=== PATIENT | female | born 1965 | race Caucasian/White ===

== ENCOUNTER 2016-10-08 09:17 | Emergency (ER) | payer MEDICAID ==
[~2016-10-08] VITALS: Ht 160 cm; Wt 61.2 kg
[2016-10-08] MEDS ORDERED: ALPRAZOLAM0.5 M3 PO (09:29)
[2016-10-08] MEDS ORDERED: FLUOXETINE HCL40 MG PO (09:30)
--- NOTE | 2016-10-08 09:34 | Emergency Room Report ---
History of Present Illness Time Seen by MD Medrano Presenting Problem in Triage Pt arrived:Walked Presenting Problem:PT STATES COUGH AND BODY ACHES. STATES BODY ACHES STARTED A FEW DAYS AGO BUT HAS HAD COUGH FOR A WHILE. STATES FEVER PAST COUPLE OF DAYS. STATES PRODUCTIVE COUGH WITH LIGHT GREEN SPUTUM. STATES CHILLS. DENIES VOMITING OR DIARRHEA. STATES TAKING IBUPROFEN ABOUT ONE HOUR PRIOR TO ARRIVAL. 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 Y Clinical Suspician of Infection? N Mental Status: 1 - Regular (Normal Baseline) Sepsis Risk:Low Sepsis Risk Have you (or family members/close friends) recently traveled outside the [place]? N If Yes, where/when: Have you had exposure to infectious disease within the past month? N TB? Other? Specify: Comment The patient complains of flulike symptoms for a few days. She has a cough producing yellow-green sputum. Her throat hurts when she coughs. She has had a fever up to 102 degrees. She has generalized myalgias. She is wheezing and having shortness of breath. She says that she has chronic obstructive pulmonary disease but is currently not on inhalers, nebulizers. She says that she does not think she has ever been on steroids for chronic obstructive pulmonary disease. She is a smoker. No known exposures. ALLERGIES Coded Allergies: No Known Allergies (10/08/16) Home Medications Reported Medications Alprazolam 0.5 MG PO QID #120 Fluoxetine Hcl 40 MG PO DAILY #30 History Medical History General CAD? No Angina: No PA: No Hypertension? No Hyperlipidemia? No CHF? No DVT? No PE? No COPD? Yes Asthma? No Anemia? No GERD? No Gastric ulcers? No GI Bleed? No Hernia? No Thyroid Problems? No Hypothyroidism? No CVA? Yes Seizures? No Diabetes? No Renal Insuffiency? No End Stage Renal Disease? No UTI? Yes Stones? Yes GB Disease: No Nephritic Syndrome? No Asplenia? No Hepatitis? No Sickle Cell Disease? No Arthritis? Yes Migraines? Yes Cataracts? No Glaucoma? No MRSA? No HIV? No TB? No Anxiety? Yes Depression? Yes Cancer? 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 Respiratory cough, shortness of breath, wheezing Gastrointestinal denies diarrhea, denies vomiting Physical Exam Vital Signs Vital Signs Date Time Temp Pulse Resp B/P Pulse O2 O2 Flow FiO2 Ox Delivery Rate 10/08 1135 72 20 112/68 91 10/08 1038 98.0 72 20 112/68 92 10/08 0923 97.9 66 20 113/61 94 General Appearance normal appearance, WD/WN Eye Exam - bilateral eye normal exam, bilateral eye PERRL, bilateral eye EOMI Ear, Nose, Throat tympanic membranes normal, erythema of the uvula Neck normal inspection, non-tender, supple, full range of motion Respiratory Status Yes: trachea midline, chest symmetrical, productive cough. No: respiratory distress. Lung Sounds bilateral: rhonchi, wheezing. Cardiovascular normal exam, regular rate/rhythm, no peripheral edema, no gallop, no JVD, no murmur, no rub, normal peripheral pulses Peripheral Pulses Pulses normal Yes Gastrointestinal normal bowel sounds, normal exam, non tender, soft, no organomegaly Back normal inspection, no CVA tenderness, no vertebral tenderness Extremities non-tender, normal range of motion, normal inspection Neurologic alert, normal exam, oriented x 3 Mental status normal mood/affect Skin intact, normal color, warm/dry Lymphatic no adenopathy Medical Decision Making LABS/Meds/Orders Pt receiving controlled substance in ED? No Results/Orders Laboratory Tests 10/08/16 1024: Lactic Acid 0.7 10/08/16 1024: Sodium 138, Potassium 3.8, Chloride 100, Carbon Dioxide 28, BUN 15, Creatinine 0.6, Estimated Creat Clear 107, Estimated GFR (MDRD) 105, Glucose 99, Calcium 9.4, Total Bilirubin 0.8, AST 11 L, ALT 14, Alkaline Phosphatase 111, Total Protein 8.0, Albumin 3.5, Globulin 4.5 H, Albumin/Globulin Ratio 0.8 L, WBC 11.9 H, RBC 5.50 H, Hgb 16.7 H, Hct 49.5 H, MCV 89.9, RDW 14.6, Plt Count 234, MPV 9.1, Gran % 81.9 H, Gran # 9.7 H, Lymphocytes % 13.0, Monocytes % 3.6 , Eosinophils % 1.0, Basophils % 0.4, Lymphocytes # 1.5, Monocytes # 0.4, Eosinophils # 0.1, Basophils # 0.1, PUBS MCHC 33.9, MCH 30.4 10/08/16 0930: Influenza Type A Ag NOT DETECTED, Influenza Type B Ag NOT DETECTED Current Medication Orders Sig/Dorcas Start time Last Medication Dose Route Stop Time Status Admin Albuterol/Ipratropium 3 ML ONCE ONE 10/08 1200 AC INH 10/08 1201 Methylprednisolone 0 .STK-MED ONE 10/08 1037 DC Sodium Succinate .ROUTE Albuterol/Ipratropium 0 .STK-MED ONE 10/08 0953 DC INH Albuterol/Ipratropium 3 ML ONCE ONE 10/08 0945 DC 10/08 INH 10/08 0946 1001 Methylprednisolone 125 MG ONCE ONE 10/08 0945 DC 10/08 Sodium Succinate IV 10/08 0946 1040 Sodium Chloride 10 ML PRN PRN 10/08 0945 AC IV 10/09 0941 Orders Procedure Date/time Status RT REQUEST DUONEB 10/08 1146 Active RT REQUEST DUONEB 10/08 09 Active CHEST(2 VIEWS-NOT PORTABLE) 10/08 09 Active IV SALINE LOCK 10/08 09 Active CULTURE, SPUTUM 10/08 941 Active CULTURE, BLOOD 10/08 09 Active LACTIC ACID 10/08 09 Complete CBC WITH AUTO DIFF 10/08 941 Complete CHEM 12 PROFILE 10/08 09 Complete INFLUENZA A&B ANTIGENS 10/08 0931 Complete XRAY/CT/US XRAY/CT/US XRAY chest Comment Chronic obstructive pulmonary disease, no infiltrates seen Progress - 11:45 AM: Recheck patient. Air movement better, still with rhonchi and wheezes. Second nebulizer treatment ordered. Discussed diagnosis, treatment, disposition. The patient does not want to be admitted, she wants to be discharged. I will discharge on an albuterol inhaler, antibiotics, steroids, and follow-up. Departure Departure Disposition DC Home or Self Care(routine) Clinical Impression Primary Impression: Acute bronchitis Qualifiers: Bronchitis organism: unspecified organism Qualified Code: J20.9 - Acute bronchitis, unspecified Secondary Impressions: Chronic obstructive pulmonary disease with (acute) exacerbation Condition STABLE Patient Instructions DI for Acute Bronchitis, DI for Chronic Obstructive Pulmonary Disease Additional Instructions Additional instructions for ACUTE BRONCHITIS: Use Tylenol or Ibuprofen of pain or fever. Rest and plenty of fluids. Return immediately if you have an uncontrollable fever greater than 102 degrees, severe headache or neck stiffness, difficulty breathing or shortness of breath, persistent vomiting, severe sore throat or inability to swallow. See your physician if not improving in 4-5 days. Prescriptions Current Visit Scripts Azithromycin (Zithromycin (Z-AFSHIN) 250MG Tab) 250 MG PO DAILY #6 TAB TAKE TWO (2) TABLETS ON DAY 1, THEN ONE (1) TABLET DAY #2 THRU #5 Benzonatate (Tessalon Perle) 100 MG PO TID #15 SGL Methylprednisolone (Medrol Dose Afshin) 4 MG PO UD #1 AFSHIN TAKE DIRECTED ON PACKAGING ALBUTEROL (Proventil Hfa Inhaler) 1-2 PUFF IH Q4-6H PRN #1 CAN Ref 1 ED Critical Care Critical Care No at [id number]
[2016-10-08 10:34] LABS: HEMOGLOBIN 16.7 g/dL (12.2-16.2); LYMPH # 1.5 K/mm3 (0.7-4.5)
[2016-10-08] MEDS ORDERED: ZITHROMAX Z PA250 MG PO (11:48)
[2016-10-08] MEDS ORDERED: TESSALON PERLE100 M1 PO (11:48)
[2016-10-08] MEDS ORDERED: MEDROL 4MG. DOSE4 MG PO (11:48)
[2016-10-08] MEDS ORDERED: PROVENTIL0.09 MG/A1 IH (11:48)
[2016-10-08 12:11] VITALS: BP 111/71
--- NOTE | 2016-10-08 14:38 | RADIOLOGY REPORT PS360 ---
CHEST(2 VIEWS-NOT PORTABLE) HISTORY: cough, fever, sob COMPARISON: None available FINDINGS: The cardiomediastinal silhouette and pulmonary vascularity are within normal limits. The lungs are clear without infiltrates, suspicious nodules, or pleural effusions. No acute bony abnormalities. IMPRESSION: Negative chest, no acute finding
== END 2016-10-08 12:12 | disposition home or self-care (01) ==
LOC: ER 09:17
PROVIDERS: Emergency Medicine
DX: J44.0 Chronic obstructive pulmonary disease with (acute) lower respiratory infection (principal); J20.8 Acute bronchitis due to other specified organisms; J44.1 Chronic obstructive pulmonary disease with (acute) exacerbation; Z72.0 Tobacco use

== ENCOUNTER → 2016-11-17 | Outpatient (CLI) | payer MEDICAID ==
[~2016-11-17] MED LIST: ALPRAZOLAM0.5 M3 PO; AUGMENTIN 875-1 EACH PO; FLUOXETINE HCL40 MG PO; MEDROL 4MG. DOSE4 MG PO; NORCO 325 MG-51 TAB PO; OMEPRAZOLE20 MG PO; PROVENTIL0.09 MG/A1 IH; TESSALON PERLE100 M1 PO; ZITHROMAX Z PA250 MG PO
--- NOTE | 2016-11-17 08:34 | CARDIOVASCULAR REPORT ---
"Cerebrovascular Exam Indications: 435.9 Unspecified transient cerebral ischemia. IMPRESSIONS 1. The right internal carotid artery reveals no evidence of plaque or stenosis. 2. The left internal carotid artery reveals no evidence of plaque or stenosis. 3. The bilateral vertebral arteries are patent with normal antegrade flow. History: Risk factors: Current tobacco use. Hyperlipidemia. Carotid duplex study. Complete study and Doppler flow study including spectral analysis, color and salmeron scale imaging. Height: Height: 160cm. Height: 63in. Weight: Weight: 59kg. Weight: 129.7lb. Body mass index: BMI: 23kg/m^2. Body surface area: BSA: 1.63m^2. Location: Vascular laboratory. Patient status: Outpatient. Tables: Arterial flow: + +--------+--------+ |Location |V sys |V ed | + +--------+--------+ |Right CCA - proximal|73.1cm/s|25.9cm/s| + +--------+--------+ |Right CCA - distal |54.2cm/s|18.9cm/s| + +--------+--------+ |Right ECA |97.4cm/s|--------| + +--------+--------+ |Right ICA - proximal|66cm/s |19.6cm/s| + +--------+--------+ |Right ICA - mid |58.1cm/s|22cm/s | + +--------+--------+ |Right ICA - distal |62.1cm/s|29.9cm/s| + +--------+--------+ |Right vertebral |51.9cm/s|--------| + +--------+--------+ |Left CCA - proximal |98.2cm/s|29.1cm/s| + +--------+--------+ |Left CCA - distal |83.3cm/s|31.4cm/s| + +--------+--------+ |Left ECA |77cm/s |--------| + +--------+--------+ |Left ICA - proximal |70.7cm/s|19.6cm/s| + +--------+--------+ |Left ICA - mid |61.3cm/s|25.1cm/s| + +--------+--------+ |Left ICA - distal |73.9cm/s|33cm/s | + +--------+--------+ |Left vertebral |63.6cm/s|--------| + +--------+--------+ Velocity ratios: + + + + + + | |Right, V sys|Right, V ed|Left, V sys|Left, V ed| + + + + + + |Max ICA/dist CCA|1.22 |1.58 |0.89 |1.05 | + + + + + + (Report amended ) Electronically signed by: Yifan Ibarra [id number]"
[2016-11-18 09:42] LABS: Folate (Folic Acid) 3.4 ng/mL (>3.0)
== END ==
LOC: RT 08:00 → LAB 08:03
PROVIDERS: Specialist
DX: R29.90 Unspecified symptoms and signs involving the nervous system (principal)

== ENCOUNTER → 2016-12-10 | Outpatient (CLI) | payer MEDICAID ==
[2016-12-10 21:05] LABS: AMPHETAMINES/METAMPHETAMINES NEGATIVE ng/mL (<1000)
[2016-12-19 14:40] LABS: Opiates Negative (Cutoff=100)
== END ==
LOC: LAB 16:43
PROVIDERS: Emergency Medicine; Nurse Practitioner Family
DX: Z79.899 Other long term (current) drug therapy (principal)

== ENCOUNTER 2017-01-02 16:14 | Observation (INO) | payer MEDICAID ==
[~2017-01-02] VITALS: Ht 160 cm; Wt 53.3 kg
[~2017-01-02 16:14] MED LIST changes: -AUGMENTIN 875-1 EACH PO; -NORCO 325 MG-51 TAB PO; -OMEPRAZOLE20 MG PO
[2017-01-02 16:19] VITALS: BP 129/80
--- NOTE | 2017-01-02 17:03 | Emergency Room Report ---
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 N Clinical Suspician of Infection? N Mental Status: 1 - Regular (Normal Baseline) Sepsis Risk:Low Sepsis Risk Have you (or family members/close friends) recently traveled outside the [place]? N If Yes, where/when: Have you had exposure to infectious disease within the past month? N TB? Other? Specify: Source patient, RN notes reviewed, family, old records Exam Limitations no limitations Comment pt with progressive abd pain over the last week with dec po intake and vomiting - Cardiac Chest Pain Chest pain indicative of cardiac No Timing/Duration this evening Severity moderate ALLERGIES Coded Allergies: No Known Allergies (10/08/16) Home Medications Active Scripts Benzonatate (Tessalon Perle) 100 MG PO TID #15 SGL Prov: 10/08/16 Methylprednisolone (Medrol Dose Afshin) 4 MG PO UD #1 AFSHIN Prov: 10/08/16 ALBUTEROL (Proventil Hfa Inhaler) 1-2 PUFF IH Q4-6H PRN #1 CAN Ref 1 Prov: 10/08/16 Reported Medications Alprazolam 0.5 MG PO QID #120 Fluoxetine Hcl 40 MG PO DAILY #30 History Medical History General CAD? No Angina: No ID: No Hypertension? No Hyperlipidemia? No CHF? No DVT? No PE? No COPD? Yes Asthma? No Anemia? No GERD? No Gastric ulcers? No GI Bleed? No Hernia? No Thyroid Problems? No Hypothyroidism? No CVA? Yes Seizures? No Diabetes? No Renal Insuffiency? No End Stage Renal Disease? No UTI? Yes Stones? Yes GB Disease: No Nephritic Syndrome? No Asplenia? No Hepatitis? No Sickle Cell Disease? No Arthritis? Yes Migraines? Yes Cataracts? No Glaucoma? No MRSA? No HIV? No TB? No Anxiety? Yes Depression? Yes Cancer? 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 Respiratory denies cough, denies shortness of breath, denies wheezing Cardiovascular denies chest pain, denies palpitations, denies syncope Gastrointestinal see HPI, abdominal pain, nausea, vomiting Genitourinary denies: dysuria, frequency, hesitancy, hematuria. Musculoskeletal denies back pain, denies joint pain, denies joint swelling, denies neck pain Skin denies rash Psychiatric/Neurological denies headache, denies seizure Physical Exam Vital Signs Vital Signs Date Time Temp Pulse Resp B/P Pulse O2 O2 Flow FiO2 Ox Delivery Rate 01/02 1710 20 01/02 1619 98.6 72 16 129/80 99 - WBC >12,000 or <4,000 or 10% bands? 2 or more SIRS Criteria Met? B/P:129/80 MAP:96 Creatinine >2.0? UA output<0.5ml/kg/hr for 2 hrs? Platelet count >100,000? Lactate >2.0mmol/1? INR >1.2 or PTT > than 60 sec? Evidence of Organ Dysfunction? Provider documented clinical suspician of infection? N Sepsis Criteria Count: 0 Sepsis Risk: Low Sepsis Risk General Appearance no apparent distress Eye Exam - bilateral eye PERRL, bilateral eye EOMI Comment no icterus Ear, Nose, Throat normal ENT inspection Neck supple Respiratory Status No: respiratory distress. Lung Sounds bilateral: lungs clear. 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 No Results/Orders Laboratory Tests 01/02/17 1725: Creatine Kinase 38, CK-MB (CK-2) Rel Index 1.3, CK and CKMB Interp < 0.5, Troponin I < 0.02 01/02/17 1725: Sodium 144, Potassium 2.9 *L, Chloride 101, Carbon Dioxide 30, BUN 20 H, Creatinine 0.7, Estimated Creat Clear 85, Estimated GFR (MDRD) 88, Glucose 106, Calcium 10.0, Total Bilirubin 1.6 H, AST 9 L, ALT 16, Alkaline Phosphatase 78, Total Protein 7.8, Albumin 4.0, Globulin 3.8 H, Albumin/Globulin Ratio 1.1, Amylase 40, Lipase 83, WBC 14.4 H, RBC 6.07 H, Hgb 18.4 *H, Hct 55.7 H, MCV 91.8, RDW 12.8, Plt Count 218, MPV 7.3 L, Gran % 83.3 H, Gran # 12.0 H, Lymphocytes % 11.6, Monocytes % 4.6, Eosinophils % 0.4, Basophils % 0.1, Lymphocytes # 1.7, Monocytes # 0.7, Eosinophils # 0.1, Basophils # 0.0, PUBS MCHC 33.0, MCH 30.3 Current Medication Orders Sig/Dorcas Start time Last Medication Dose Route Stop Time Status Admin Hydromorphone HCl 1 MG ONCE ONE 01/020 DC IV 01/02 183 Pantoprazole Sodium 40 MG ONCE ONE 01/02 183 DC IV 01/02 1831 Promethazine HCl 12.5 MG ONCE ONE 01/02 1830 DC IV 01/02 1831 Sodium Chloride 25 ML ONCE ONE 01/02 1830 DC IV 01/02 1844 Sodium Chloride 10 ML ONCE ONE 01/02 1830 DC IV 01/02 1831 Morphine Sulfate 4 MG ONCE ONE 01/02 1715 DC 01/02 IV 01/02 1716 1710 Ondansetron HCl 4 MG ONCE ONE 01/02 1715 DC 01/02 IV 01/02 1716 1709 Ondansetron HCl 0 .STK-MED ONE 01/02 170 DC .ROUTE Morphine Sulfate 0 .STK-MED ONE 01/02 1706 DC .ROUTE Ondansetron HCl 4 MG ONCE ONE 01/02 1630 DC 01/02 IV 01/02 1631 1637 Sodium Chloride 10 ML PRN PRN 01/02 1630 AC IV 01/03 1625 Sodium Chloride 1,000 ML .Q1H1M 01/02 1630 DC 01/02 IV 01/02 1730 1639 Sodium Chloride 10 ML PRN PRN 01/02 1630 AC IV 01/03 1626 Sodium Chloride 1,000 ML .STK-MED ONE 01/02 1625 DC IV Ondansetron HCl 0 .STK-MED ONE 01/02 1624 DC .ROUTE Orders Procedure Date/time Status DIET-NOTHING BY MOUTH 01/[address] ABD & PELVIS W/O CONTRAST 01/[address] SCAN REQ 01/02 1826 Active CARDIAC ENZYMES 01/02 1646 Complete IV SALINE LOCK 01/02 1626 Active LIPASE 01/02 1626 Complete CBC WITH AUTO DIFF 01/02 1626 Complete CHEM 12 PROFILE 01/02 1626 Complete AMYLASE 01/02 1626 Complete XRAY/CT/US XRAY/CT/US Ultrasound gallbladder US Interpretation by discussed w/radiologist US results gall bladder stones, thick gall bladder wall Departure Departure Time of Disposition 185 Disposition Still a Patient Clinical Impression Primary Impression: Cholecystitis Condition STABLE Referrals [facility] (Family) discussed with mouna ED Critical Care Critical Care No at 1858
[2017-01-02 17:40] LABS: LYMPH # 1.7 K/mm3 (0.7-4.5); LYMPH % 11.6 % (10-50.0)
[2017-01-02 17:46] LABS: HEMOGLOBIN 18.4 g/dL (12.2-16.2)
--- NOTE | 2017-01-02 18:48 | RADIOLOGY REPORT PS360 ---
US GALLBLADDER (ABD LTD) Ordering Physician: Jacqui Martino MD Patient Age: 51 years: Female HISTORY: EPIGASTRIC PAINright upper quadrant pain and vomiting bile-like fluid. Lethargic TECHNIQUE: Ultrasound right upper quadrant FINDINGS Pancreas unremarkable. Liver. No focal lesions. No ductal dilatation Gallbladder:. Diffuse gallbladder wall thickening it measures up to/4- 4.5 mm thickness. Edematous appearance Gallbladder wall there may be some echogenic foci within the gallbladder wall which could reflect cholesterolosis Echogenic 4 mm focus towards the fundus the gallbladder likely is a small stone. Less likely shadowing polyp.. If RUQ symptoms persist consider HIDA scan possibly with fatty meal further evaluate Right kidney. Normal. No obstruction. No hydronephrosis. IMPRESSION: 1. Abnormal Gallbladder. : Definite Diffuse wall thickening. Edematous appearing gallbladder wall. Small 4 mm echogenic shadowing stone towards fundus 2. Common duct appears normal. 3. Liver, pancreas, right kidney satisfactory
--- NOTE | 2017-01-02 19:33 | RADIOLOGY REPORT PS360 ---
CT ABD PELVIS W/O CONTRAST Ordering Physician: Jacqui Martino MD Patient Age: 51 years: Female HISTORY: ABD PAINnausea vomiting abdominal pain. Abnormal gallbladder thickening on ultrasound TECHNIQUE: Helical CT scanning performed at of pelvis with no oral or IV contrast utilized. Sagittal and coronal reconstruction CT workstation COMPARISON. Ultrasound from today otherwise no relevant studies FINDINGS Lung bases are with no active disease. Heart normal in size with scant pericardial fluid. Abdomen. Lack of oral and IV contrast decreases sensitivity. Liver:. No significant appearing findings. .Note a Less than 2 cm very Low-density along the anterior marginal liver near the falciform ligament about fissure ligamentum teres. Most likely focal fatty change with scanning from this region. Can be followed .. Small less than 6-mm cyst at the central right lobe superiorly. Gallbladder. Mild diffuse wall thickening was better appreciated on ultrasound. No inflammation surrounding this mildly thickened gallbladder wall. No calcified stones identified by CT No biliary ductal dilatation Pancreas. Unremarkable Adrenals. Generous left adrenal more so than right. No focal nodules or findings of significant concern Spleen unremarkable. RIGHT KIDNEY.: Minimal hydronephrosis. This is due to a generous 6 mm x 5 mm x over 8 mm length calculus proximal right ureter.. Mild dilatation of right ureter seen both Proximal & less evident distal to this calculus. The more distal right pelvic ureter unremarkable. No additional calculi along the right ureter Right kidney does contain a small 3 mm nonobstructive calculus midportion right kidney Left kidney and collecting system normal. Left ureter unremarkable. Urinary bladder. Unremarkable. Numerous Phleboliths of pelvis Pelvis. Retroverted uterus. Normal upper normal size slightly generous towards the fundus ovaries appear normal in size with no adnexal masses. GI TRACT. No free fluid nor free air. Stomach: posterior gastric upper normal to generous thickness.. Moderate fluid at stomach. Generous gas and fluid at the descending duodenum Small bowel there is slight increased fluid throughout proximal small bowel. Up to 3.2 cm maximum diameterfluid-filled proximal jejunum noted left upper quadrant with. Moderate Air-fluid levels within these mildly distended, proximal small bowel loops. Question mild enteritis or possibly mild ileus. .Appendix normal. Terminal ileum normal. Large Bowel. No dilatation. Increased Liquid stool right colon and hepatic flexure & proximal transverse colon. Moderate air-fluid levels, could reflect developing diarrhea. Upper normal wall thickness distal transverse colon most likely reflecting lack of distention Osseous: No significant osseous lesions Generous disc bulge L1/2 yields mild spinal stenosis. Facet hypertrophy throughout L-spine. ---- IMPRESSION: --------- 1. Obstructive uropathy on the right. 6 mm x 5 mm x 8 mm calculus proximal right ureter, with minimal right hydronephrosis. Mild dilatation proximal right ureter. Recommend correlation urinalysis 2.. Suspect mild enteritis or ileus.: .Generous fluid within mildly distended proximal small bowel loops.-. Moderate air-fluid levels within jejunum. .Liquid stool with minimal air-fluid levels within nondilated right colon & hepatic flexure 3. Mild Gallbladder wall thickening on CT., (GB thickening more impressive on ultrasound.) No associated inflammation evident on CT. Common duct normal 5. Other observations in text
[2017-01-02 22:11] VITALS: BP 164/104
[2017-01-02 23:11] VITALS: BP 164/104
[2017-01-02] MEDS ORDERED: OMEPRAZOLE20 MG PO (23:50)
[2017-01-03] VITALS (8 sets, daily range): BP systolic 84–164; BP diastolic 43–82
[2017-01-03 05:27] LABS: BILIRUBIN, INDIRECT 1.03 mg/dL (0-0.9)
[2017-01-03 05:35] LABS: LYMPH # 2.4 K/mm3 (0.7-4.5); LYMPH % 20.9 % (10-50.0)
[2017-01-03 05:39] LABS: HEMOGLOBIN 15.5 g/dL (12.2-16.2)
--- NOTE | 2017-01-03 07:53 | CONSULT NOTE ---
Standard Demographics Patient Demo Date of Consultation: 01/03/17 Referring Provider: Suzan Martino MD Reason for Consultation: cholecystitis PRIMARY DIAGNOSIS: CHOLECYSTITIS Allergies: Coded Allergies: No Known Drug Intolerances (NA 01/03/17) History of Present Illness Chief Complaint: Abdominal pain and nausea History of Present Illness: This is a 51-year-old female seen in consultation from Dr. Martino for evaluation regarding cholecystitis. She presented to the emergency department last evening with increasing pain in the upper abdomen. She describes pain initially in the epigastric region with some radiation to the bilateral upper quadrants. She states that the pain "went to the whole belly". She describes "pretty sharp pain ". Severity 5-10 out of 10. Duration "3-4 days". She has had similar episodes on 4 separate occasions over the past 4-5 months. No jaundice. No definitive fevers. Fairly severe associated nausea with intermittent emesis. Some possible association with food intake. This morning she states that she is "better with the medicine". Past Medical History Reports: COPD. Surgical History Previous Surgery?Y Tubal Ligation UTERINE WALL REPAIR Allergies Coded Allergies: No Known Drug Intolerances (NA 01/03/17) Medications: Reported Medications MISCELLANEOUS (UNKNOWN MEDICATION) (Unknown Dose) TP Alprazolam 0.5 MG PO QID #120 Fluoxetine Hcl 40 MG PO DAILY #30 Family history Postive for: HTN. Smoking Hx Tobacco: Yes Smoker: Current Every Day Smoker Type: Cigarettes Packs/day: 1 1/2 - 2 Packs Are you/the child exposed to second-hand smoke: No Alcohol Alcohol: No Hx of Drug Use Drug Use? No Review of Systems Constitutional No: recent weight loss. Skin No: bruising. Immune/allergy No: anaphalaxis. Eyes No: blurry vision. ENT No: nose bleed. Respiratory No: pneumonia. Cardiovascular No: palpitations. GI Positive for: nausea, vomitting. No: dysphagia, hematemeis, hematochezia, melena. (female) No: hematuria. Musculoskeletal No: myalgias. Heme No: petechia. Endocrine No: polydipsia. Neurological No: change in LOC. Psychiatric No: anxious. Physical Exam VS/I&O Vital Signs Date Time Temp Pulse Resp B/P Pulse O2 O2 Flow FiO2 Ox Delivery Rate 01/03 0540 18 01/03 0445 98.2 62 18 153/82 96 ROOM AIR 01/03 0021 18 01/02 2311 55 01/02 2311 98.0 55 18 164/104 01/02 2311 98 ROOM AIR 01/021 98.0 55 18 164/104 98 ROOM AIR 01/02 2009 98.6 70 16 130/65 98 01/03 2008 98.6 70 16 130/65 98 01/02 1941 20 01/02 1904 70 20 129/80 99 01/02 1710 20 01/02 1619 98.6 72 16 129/80 99 I&O 01/03 0700 Intake Total Output Total Balance Patient 53.326 kg Weight Exam General appearance no acute distress Neck full ROM Respiratory no distress Cardiovascular regular rate and rhythm Abdomen soft (+ TTP throughout (upper>lower)) Neurological normal speech Findings/Data Ultrasound reveals fairly diffuse moderate wall thickening of the gallbladder with possible stone/debris. CT scan reveals no significant pericholecystic fat stranding. White blood cell count 11.3 Potassium 2.6 Bilirubin 1.3 (1.6 on admission) Plan Plan: Impression: Likely calculus cholecystitis - overall, feeling somewhat better this morning Leukocytosis - resolving Mild hyperbilirubinemia - improving Hypokalemia Plan: 1) replace K+ 2) continue antibiotics 3) serial exams 4) I have discussed the risks and benefits of cholecystectomy. The patient understands the risks and benefits and wishes to proceed. From a cardiac standpoint, it will be beneficial to replace potassium appropriately prior to surgical intervention. If the patient continues to improve, she could potentially be discharged later today or early tomorrow with follow-up surgical office on Thursday (for likely cholecystectomy later in the week). If she does not continue to improve, she will be made NPO after midnight with likely cholecystectomy in the morning (after appropriate potassium replacement). at 0753
--- NOTE | 2017-01-03 10:44 | HISTORY AND PHYSICAL REPORT ---
Demographics: Admit date: 01/02/17 Chief complaint: abd pain PRIMARY DIAGNOSIS: CHOLECYSTITIS Allergies: Coded Allergies: No Known Drug Intolerances (NA 01/03/17) History of present illness: History of present illness: this wf with progressive upper abd pain assoc with dec food intake and vomiting but no fever had been seen as op and treated with ppi and antiemetics but with progressive sx and was seen int he [facility] ed with pain and pos murphys sign and had vomiting and pain and despite meds was unable to be made comfortable and jewel po fluids - pt had abn gb u/s and after discussion with surg was admitted with ivf/ abx and pain meds with emetics and surg consult- she was also noted to rt distal urethral stone Past medical history: Family HX Family Hx Insignificant Yes Immunization HX DT/Tetanus Unknown Pneumonia Never Had TB Test in last year Yes Result Negative General CAD? No Angina: No [place]: No Hypertension? No Hyperlipidemia? No CHF? No DVT? No PE? No COPD? Yes Asthma? No Anemia? No GERD? No Gastric ulcers? No GI Bleed? No Hernia? No Thyroid Problems? No Hypothyroidism? No CVA? Yes Seizures? No Diabetes? No Renal Insuffiency? No UTI? Yes Stones? Yes GB Disease: No Nephritic Syndrome? No Asplenia? No Hepatitis? No Sickle Cell Disease? No Arthritis? Yes Migraines? Yes Cataracts? No Glaucoma? No MRSA? No HIV? No TB? No Anxiety? Yes Depression? Yes Cancer? No More? No Past Surgical HX Previous Surgery?Y Tubal Ligation UTERINE WALL REPAIR Current home meds: Reported Medications MISCELLANEOUS (UNKNOWN MEDICATION) (Unknown Dose) TP Alprazolam 0.5 MG PO QID #120 Fluoxetine Hcl 40 MG PO DAILY #30 Social Hx: Smoking HX Tobacco Yes Type Cigarettes Packs/day 1 1/2 - 2 PACKS Are you/the child exposed to second-hand smoke: No Alcohol Alcohol: No Hx of Drug Use Drug Use? No Patien't marital status is Patient's support system is good Review of systems: Constitutional see HPI, weakness. No: fever. Eyes No: blurred vision. Ears, Nose, Mouth, Throat No ear pain, No epistaxis, No throat pain Respiratory No: cough, shortness of breath, wheezing. Cardiovascular No chest pain, No palpitations, No syncope Gastrointestinal/Abdominal see HPI, nausea, poor appetite, poor fluid intake, vomiting Genitourinary No: dysuria, frequency, hesitancy, hematuria. Musculoskeletal No: back pain, joint pain, joint swelling, neck pain. Skin No: rash. Neurological No: headache, numbness, seizure disorder. Psychiatric No: depressed. Exam: Lab data for last 24 hours: Laboratory Tests 01/03/17 0500: Sodium 141, Potassium 2.6 *L, Chloride 104, Carbon Dioxide 28, BUN 15, Creatinine 0.6, Estimated Creat Clear 93, Estimated GFR (MDRD) 105, Glucose 99, Calcium 8.5, Total Bilirubin 1.3 H, Direct Bilirubin 0.27 H, Indirect Bilirubin 1.03 H, AST 9 L, ALT 13, Alkaline Phosphatase 60, Total Protein 6.0 L, Albumin 3.0 L, WBC 11.3 H, RBC 5.04, Hgb 15.5, Hct 46.3, MCV 92.0, RDW 12.9 , Plt Count 174, MPV 7.3 L, Gran % 72.5, Gran # 8.2 H, Lymphocytes % 20.9, Monocytes % 6.1, Eosinophils % 0.3, Basophils % 0.1, Lymphocytes # 2.4, Monocytes # 0.7, Eosinophils # 0.0, Basophils # 0.0, PUBS MCHC 33.4, MCH 30.7 01/02/17 1725: Creatine Kinase 38, CK-MB (CK-2) Rel Index 1.3, CK and CKMB Interp < 0.5, Troponin I < 0.02 01/02/17 1725: Sodium 144, Potassium 2.9 *L, Chloride 101, Carbon Dioxide 30, BUN 20 H, Creatinine 0.7, Estimated Creat Clear 85, Estimated GFR (MDRD) 88, Glucose 106, Calcium 10.0, Total Bilirubin 1.6 H, AST 9 L, ALT 16, Alkaline Phosphatase 78, Total Protein 7.8, Albumin 4.0, Globulin 3.8 H, Albumin/Globulin Ratio 1.1, Amylase 40, Lipase 83, WBC 14.4 H, RBC 6.07 H, Hgb 18.4 *H, Hct 55.7 H, MCV 91.8, RDW 12.8, Plt Count 218, MPV 7.3 L, Gran % 83.3 H, Gran # 12.0 H, Lymphocytes % 11.6, Monocytes % 4.6, Eosinophils % 0.4, Basophils % 0.1, Lymphocytes # 1.7, Monocytes # 0.7, Eosinophils # 0.1, Basophils # 0.0, PUBS MCHC 33.0, MCH 30.3 Admission vital signs: 1ST Vital Signs Result Date Time Pulse Ox 99 01/02 161 B/P 129/80 01/02 1619 Temp 98.6 01/02 161 Pulse 72 01/02 161 Resp 16 01/02 161 O2 Delivery ROOM AIR 01/02 2211 Exam General appearance: alert Eyes: anicteric, PERRLA ENT: dry mucous membranes Neck: no carotid bruit, no JVD Cardiovascular: regular rate & rhythm, no murmur Respiratory: clear to auscultation, no respiratory distress ABD: soft, no tenderness, no guarding, tenderness, tender cameron sign Genitourinary: normal voiding & quantity Extremities: moves all Musculoskeletal: equal muscle strength Skin: dry 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 Cholecystitis 2. Chronic obstructive pulmonary disease with (acute) exacerbation 3. Renal colic on right side 4. Hypokalemia 5. Tobacco use Plan: will give abx with fluids and surg consult noted at 1048
[2017-01-04 05:05] VITALS: BP 96/60
[2017-01-04 06:37] LABS: LYMPH # 2.9 K/mm3 (0.7-4.5); LYMPH % 40.3 % (10-50.0)
[2017-01-04 06:41] LABS: HEMOGLOBIN 13.9 g/dL (12.2-16.2)
[2017-01-04 07:18] VITALS: BP 111/59
--- NOTE | 2017-01-04 07:46 | SURGEON PROGRESS NOTE ---
See Addendum Subjective data Subjective data: She states that she is "still in some pain, but much better". Objective data Vitals,I&O,and Labs: Vital signs, intake and output,and available lab data for the last 24 hours is as noted below. Vital Signs Date Time Temp Pulse Resp B/P Pulse O2 O2 Flow FiO2 Ox Delivery Rate 01/04 718 98.0 42 18 111/59 93 ROOM AIR 01/04 0505 98.1 46 18 96/60 96 ROOM AIR 01/03 2036 18 01/03 2030 98.0 45 18 93/51 93 01/03 202 93/51 / 1950 98.0 45 18 84/43 93 ROOM AIR 01/03 1636 99.0 67 18 120/63 96 ROOM AIR 01/03 1323 16 01/03 0915 16 01/03 0900 98.1 53 16 164/74 95 / 0817 98.1 53 16 164/74 95 ROOM AIR 01/03 1500 01/03 2300 01/04 07 Intake Total 240 1417 Output Total Balance 240 1417 Intake, IV 1177 Intake, Oral 240 240 Output, Stool Laboratory Tests Test Result Date Time Chemistry Sodium (mmoL/L) 142 01/05 620 Potassium (mmoL/L) 3.5 01/05 620 Chloride (mmoL/L) 109 01/05 620 Carbon Dioxide (mmoL/L) 27 01/04 06 BUN (mg/dL) 7 01/05 620 Creatinine (mg/dL) 0.7 01/05 620 Estimated Creat Clear (ML/MIN) 80 01/05 620 Estimated GFR (MDRD) (ML/MIN) 88 01/05 620 Glucose (mg/dL) 84 01/05 620 Calcium (mg/dL) 8.4 01/05 620 Total Bilirubin (mg/dL) 0.6 01/05 620 Direct Bilirubin (mg/dL) 0.27 01/03 0500 Indirect Bilirubin (mg/dL) 1.03 01/03 0500 AST (U/L) 12 01/04 06 ALT (U/L) 14 01/05 620 Alkaline Phosphatase (U/L) 52 01/04 06 Creatine Kinase (U/L) 38 01/02 1725 CK-MB (CK-2) Rel Index (U/L) 1.3 01/02 1725 CK and CKMB Interp (ng/mL) < 0.5 01/02 1725 Troponin I (ng/mL) < 0.02 01/02 1725 Total Protein (gm/dL) 4.8 01/05 620 Albumin (gm/dL) 2.6 01/05 620 Globulin (gm/dL) 2.2 01/05 620 Albumin/Globulin Ratio 1.2 01/05 620 Amylase (U/L) 40 01/02 1725 Lipase (U/L) 83 01/02 1725 Hematology WBC (K/MM3) 7.3 01/05 620 RBC (M/mm3) 4.49 01/05 620 Hgb (g/dL) 13.9 01/05 620 Hct (%) 42.6 01/05 620 MCV (fl) 94.9 01/05 620 RDW (%) 12.8 01/05 620 Plt Count (K/mm3) 118 01/05 620 MPV (fl) 7.2 01/05 620 Gran % (%) 53.8 01/05 620 Gran # (K/mm3) 3.9 01/05 620 Lymphocytes % (%) 40.3 01/05 620 Monocytes % (%) 4.3 01/05 620 Eosinophils % (%) 1.3 01/05 620 Basophils % (%) 0.3 01/05 620 Lymphocytes # (K/mm3) 2.9 01/05 620 Monocytes # (K/mm3) 0.3 01/05 620 Eosinophils # (K/mm3) 0.1 01/05 620 Basophils # (K/MM3) 0.0 01/05 620 PUBS MCHC (g/dl) 32.6 01/05 620 Immunology MCH (pg) 31.0 01/05 620 Assessment findings Assessment Exam General appearance: no acute distress Cardiovascular: regular rate & rhythm Respiratory: no respiratory distress ABD: soft (slightly less tender) Patient plan Diagnoses: Acute cholecystitis - improving with regard to pain...nausea essentially resolved Hypokalemia - potassium replaced yesterday Leukocytosis - resolved Plan: (see below) Additional data: I have had a long discussion with the patient concerning the risks and benefits of cholecystectomy. I have also discussed with the patient the most appropriate timing for surgery. I have recommended either going to the operating room today or being discharged today with close follow-up (office appointment with me on Thursday...likely surgery on Thursday). She states that she would like to "get a little better before surgery". She prefers being discharged today and states that she will follow-up with me on Thursday in the office. at 0995
--- NOTE | 2017-01-04 09:40 | ACUTE CARE PROGRESS NOTE (QUA) ---
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 Cholecystitis 2. Chronic obstructive pulmonary disease with (acute) exacerbation 3. Renal colic on right side 4. Hypokalemia 5. Tobacco use Patient condition Improving Plan: initiate discharge plan This inpt stay is expected to cross 2 MNs from start of care Yes Comments: will see surg tueday and gb surg thursday Antibiotic Stewardship (2) Infxn that will respond? Yes Right drug,dose,and route? Yes More targeted antbx? No How long atbx needed? 7 at 0940
--- NOTE | 2017-01-04 09:40 | ACUTE CARE PROGRESS NOTE (QUA) ---
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 Cholecystitis 2. Chronic obstructive pulmonary disease with (acute) exacerbation 3. Renal colic on right side 4. Hypokalemia 5. Tobacco use Patient condition Improving Plan: initiate discharge plan This inpt stay is expected to cross 2 MNs from start of care Yes Comments: will see surg tueday and gb surg thursday Antibiotic Stewardship (2) Infxn that will respond? Yes Right drug,dose,and route? Yes More targeted antbx? No How long atbx needed? 7 at 0940
[2017-01-04] MEDS ORDERED: AUGMENTIN 875-1 EACH PO (09:43)
[2017-01-04] MEDS ORDERED: NORCO 325 MG-51 TAB PO (09:43)
--- NOTE | 2017-01-04 09:47 | DISCHARGE SUMMARY STANDARD ---
Demographics Admit date: 01/02/17 Discharge date: 01/04/17 History of present illness History of present illness this wf with progressive upper abd pain assoc with dec food intake and vomiting but no fever had been seen as op and treated with ppi and antiemetics but with progressive sx and was seen int he [facility] ed with pain and pos murphys sign and had vomiting and pain and despite meds was unable to be made comfortable and jewel po fluids - pt had abn gb u/s and after discussion with surg was admitted with ivf/ abx and pain meds with emetics and surg consult- she was also noted to rt distal urethral stone Hospital Course Hospital Course: pt did better with iv abx and pain meds with surg consult - pt with dec pain and will have surg as op- she responded to kcl replacement - pt had pain and dec po intake first day and then able to tolerate diet and wbc decreased Discharge diagnoses Problem List 1. Cholecystitis 2. Chronic obstructive pulmonary disease with (acute) exacerbation 3. Renal colic on right side 4. Hypokalemia 5. Tobacco use Medications Medications: Discharge meds are as noted. Comment: will see mouna thursday and surg thursday Follow up Follow up in office in: 2 DAYS with: TELLO MUNOZ MD at 0946
[2017-01-04 10:00] VITALS: BP 114/67
== END 2017-01-04 11:15 | disposition home or self-care (01) ==
LOC: ER 16:14 → 2ND 19:03
PROVIDERS: Emergency Medicine; Surgery
DX: K81.9 Cholecystitis, unspecified (principal); J44.1 Chronic obstructive pulmonary disease with (acute) exacerbation; Z72.0 Tobacco use; E87.6 Hypokalemia
CPT/HCPCS: G0378; J2405; J2543

== ENCOUNTER 2017-01-05 17:12 | Inpatient (IN) | payer MEDICAID ==
[~2017-01-05] VITALS: Ht 160 cm; Wt 55.1 kg
[~2017-01-05 17:12] MED LIST changes: +AUGMENTIN 875-1 EACH PO; +NORCO 325 MG-51 TAB PO; +OMEPRAZOLE20 MG PO
[2017-01-05 17:18] VITALS: BP 190/100
--- NOTE | 2017-01-05 17:32 | Emergency Room Report ---
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 N Clinical Suspician of Infection? N Mental Status: 1 - Regular (Normal Baseline) Sepsis Risk:Low Sepsis Risk Have you (or family members/close friends) recently traveled outside the [place]? N If Yes, where/when: Have you had exposure to infectious disease within the past month? TB? Other? Specify: Source patient, RN notes reviewed, family, RN/MD Exam Limitations no limitations Comment This is a 51 years old female patient just discharged form the hospital yesterday, with similar simptoms, abdominal pain, nausea and vomiting, same as the ones prompting today's presentation. She was diagnosed with cholecystitis upon dischage (per gallbladder ultrasound) and she is scheduled to have lap grazyna with Dr Guzman this Thursday, as outpatient. Paitnet is back with worse pain, unable to hold down any fluids, solids or even the pain meds. ALLERGIES Coded Allergies: No Known Drug Intolerances (NA 01/05/17) Home Medications Active Scripts Amoxicillin/Potassium Clav (Augmentin 875-125 Tablet) 1 EACH PO BID #14 TAB Prov: 01/04/17 HYDROCODONE/ACETAMINOPHEN (Welch 5-325 Tablet) 1 TAB PO Q6HP PRN PAIN #12 TAB Prov: 01/04/17 Reported Medications Alprazolam 0.5 MG PO QID #120 TAB Fluoxetine Hcl 40 MG PO DAILY #30 CAPSULE Omeprazole (Omeprazole 20MG) 20 MG PO DAILY History Medical History General CAD? No Angina: No [place]: No Hypertension? No Hyperlipidemia? No CHF? No DVT? No PE? No COPD? Yes Asthma? No Anemia? No GERD? No Gastric ulcers? No GI Bleed? No Hernia? No Thyroid Problems? No Hypothyroidism? No CVA? Yes Seizures? No Diabetes? No Renal Insuffiency? No End Stage Renal Disease? No UTI? Yes Stones? Yes GB Disease: No Nephritic Syndrome? No Asplenia? No Hepatitis? No Sickle Cell Disease? No Arthritis? Yes Migraines? Yes Cataracts? No Glaucoma? No MRSA? No HIV? No TB? No Anxiety? Yes Depression? Yes Cancer? No More? 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/A Family History Family Hx Diabetes No CAD No Hypertension Yes Hyperlipidemia No Cancer Yes TB No Social History Smoking Hx Smoker: Current Every Day Smoker Tobacco: Yes Type Cigarettes Packs/day 1 1/2 - 2 Packs Alcohol Alcohol: No Review of Systems All Other Systems Reviewed and Negative Gastrointestinal see HPI, abdominal pain, denies diarrhea, nausea, vomiting Physical Exam Vital Signs Vital Signs Date Time Temp Pulse Resp B/P Pulse O2 O2 Flow FiO2 Ox Delivery Rate 01/05 1822 20 01/05 1819 61 14 161/87 98 01/05 1817 85 18 179/85 98 01/05 1718 98.7 52 18 190/100 98 General Appearance normal appearance, WD/WN, moderate distress Neck normal inspection, non-tender, supple, full range of motion Respiratory Status Yes: trachea midline, chest symmetrical, non tender chest. No: respiratory distress. Lung Sounds bilateral: normal breath sounds, lungs clear. 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 No Comment 17:15-case d/w Dr Arenas, agreeable with consult, as well as the need to move up the surgery to tomorrow. 17:20-case d/w Dr Martino, agreeable to admit the patient for iv fluids, iv abx, NPO after midnight, and consult dr. Guzman in am. Case transferred to Dr Martino/Dr Guzman/Dr Arenas at this time. I will write temprary admission orders, per hospital protocol. Upon patient's arrival to the floor, the unit nurse to contact the PCP in order to obtain full admission orders. Results/Orders Laboratory Tests 01/05/171814: Sodium 141, Potassium 2.9 *L, Chloride 104, Carbon Dioxide 28, BUN 5 L, Creatinine 0.6, Estimated Creat Clear 91, Estimated GFR (MDRD) 105, Glucose 95, Calcium 8.8, Total Bilirubin 0.9, AST 22, ALT 25, Alkaline Phosphatase 65, Total Protein 6.4, Albumin 3.3 L, Globulin 3.1, Albumin/Globulin Ratio 1.1, Amylase 29, Lipase 52 L, WBC 7.3, RBC 5.14, Hgb 16.0, Hct 47.0, MCV 91.6, RDW 12.5, Plt Count 168, MPV 7.7, Gran % 77.3, Gran # 5.6, Lymphocytes % 17.4, Monocytes % 4.1 , Eosinophils % 1.1, Basophils % 0.3, Lymphocytes # 1.3, Monocytes # 0.3, Eosinophils # 0.1, Basophils # 0.0, PUBS MCHC 33.8, MCH 31.0 01/05/17 175: Urine Color Cancelled, Urine Appearance Cancelled, Urine pH Cancelled, Ur Specific [place] Cancelled Current Medication Orders Sig/Dorcas Start time Last Medication Dose Route Stop Time Status Admin Sodium Chloride 1,000 ML .Q8H 01/05 1830 AC 01/07 IV 1216 Ampicillin/Sulbactam/ 3 GM Q6H 01/05 181 AC 01/07 Sodium Chlorid IV 1216 Sodium Chloride 100 ML Ondansetron HCl 4 MG Q6HP PRN 01/05 181 AC 01/07 IV 1216 Sodium Chloride 10 ML PRN PRN 01/05 1800 AC IV Orders Procedure Date/time Status DIET-NOTHING BY MOUTH 01/06 B Complete SURGICAL CONSULT(TRAFFIC LIEUTENANT SURG) 01/06 0600 Active LIPASE 01/05 1751 Complete COMPLETE METABOLIC PANEL 01/05 175 Complete CBC WITH AUTO DIFF 01/05 175 Complete AMYLASE 01/05 175 Complete VITAL SIGNS 01/05 UNK Active POM NURSE ROBBIE FRANKLIN ORDER 01/05 UNK Active CODE STATUS 01/05 UNK Active PATIENT ACTIVITY ORDER 01/05 UNK Active 17:30-is discussed with general surgeon concrete rod buster, Dr Arenas, advised of the patient's presentation, physical exam, lack of improvement, inability to hold down any fluids, including pain medications, and tentatively scheduled lap grazyna for Thursday. (Joel Sepulveda MD) Departure Departure Time of Disposition 173 Disposition Still a Patient Clinical Impression Primary Impression: Cholecystitis Condition STABLE Referrals [facility] (Family) ED Critical Care Critical Care No at 1235
--- NOTE | 2017-01-05 17:32 | Emergency Room Report ---
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 N Clinical Suspician of Infection? N Mental Status: 1 - Regular (Normal Baseline) Sepsis Risk:Low Sepsis Risk Have you (or family members/close friends) recently traveled outside the [place]? N If Yes, where/when: Have you had exposure to infectious disease within the past month? TB? Other? Specify: Source patient, RN notes reviewed, family, RN/MD Exam Limitations no limitations Comment This is a 51 years old female patient just discharged form the hospital yesterday, with similar simptoms, abdominal pain, nausea and vomiting, same as the ones prompting today's presentation. She was diagnosed with cholecystitis upon dischage (per gallbladder ultrasound) and she is scheduled to have lap grazyna with Dr Guzmna this Thursday, as outpatient. Paitnet is back with worse pain, unable to hold down any fluids, solids or even the pain meds. ALLERGIES Coded Allergies: No Known Drug Intolerances (NA 01/05/17) Home Medications Active Scripts Amoxicillin/Potassium Clav (Augmentin 875-125 Tablet) 1 EACH PO BID #14 TAB Prov: 01/04/17 HYDROCODONE/ACETAMINOPHEN ([place] 5-325 Tablet) 1 TAB PO Q6HP PRN PAIN #12 TAB Prov: 01/04/17 Reported Medications Alprazolam 0.5 MG PO QID #120 TAB Fluoxetine Hcl 40 MG PO DAILY #30 CAPSULE Omeprazole (Omeprazole 20MG) 20 MG PO DAILY History Medical History General CAD? No Angina: No ME: No Hypertension? No Hyperlipidemia? No CHF? No DVT? No PE? No COPD? Yes Asthma? No Anemia? No GERD? No Gastric ulcers? No GI Bleed? No Hernia? No Thyroid Problems? No Hypothyroidism? No CVA? Yes Seizures? No Diabetes? No Renal Insuffiency? No End Stage Renal Disease? No UTI? Yes Stones? Yes GB Disease: No Nephritic Syndrome? No Asplenia? No Hepatitis? No Sickle Cell Disease? No Arthritis? Yes Migraines? Yes Cataracts? No Glaucoma? No MRSA? No HIV? No TB? No Anxiety? Yes Depression? Yes Cancer? No More? 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/A Family History Family Hx Diabetes No CAD No Hypertension Yes Hyperlipidemia No Cancer Yes TB No Social History Smoking Hx Smoker: Current Every Day Smoker Tobacco: Yes Type Cigarettes Packs/day 1 1/2 - 2 Packs Alcohol Alcohol: No Review of Systems All Other Systems Reviewed and Negative Gastrointestinal see HPI, abdominal pain, denies diarrhea, nausea, vomiting Physical Exam Vital Signs Vital Signs Date Time Temp Pulse Resp B/P Pulse O2 O2 Flow FiO2 Ox Delivery Rate 01/05 1822 20 01/05 1819 61 14 161/87 98 01/05 1817 85 18 179/85 98 01/05 1718 98.7 52 18 190/100 98 General Appearance normal appearance, WD/WN, moderate distress Neck normal inspection, non-tender, supple, full range of motion Respiratory Status Yes: trachea midline, chest symmetrical, non tender chest. No: respiratory distress. Lung Sounds bilateral: normal breath sounds, lungs clear. 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 No Comment 17:15-case d/w Dr Arenas, agreeable with consult, as well as the need to move up the surgery to tomorrow. 17:20-case d/w Dr Martino, agreeable to admit the patient for iv fluids, iv abx, NPO after midnight, and consult dr. Guzman in am. Case transferred to Dr Martino/Dr Guzman/Dr Arenas at this time. I will write temprary admission orders, per hospital protocol. Upon patient's arrival to the floor, the unit nurse to contact the PCP in order to obtain full admission orders. Results/Orders Laboratory Tests 01/05/171814: Sodium 141, Potassium 2.9 *L, Chloride 104, Carbon Dioxide 28, BUN 5 L, Creatinine 0.6, Estimated Creat Clear 91, Estimated GFR (MDRD) 105, Glucose 95, Calcium 8.8, Total Bilirubin 0.9, AST 22, ALT 25, Alkaline Phosphatase 65, Total Protein 6.4, Albumin 3.3 L, Globulin 3.1, Albumin/Globulin Ratio 1.1, Amylase 29, Lipase 52 L, WBC 7.3, RBC 5.14, Hgb 16.0, Hct 47.0, MCV 91.6, RDW 12.5, Plt Count 168, MPV 7.7, Gran % 77.3, Gran # 5.6, Lymphocytes % 17.4, Monocytes % 4.1 , Eosinophils % 1.1, Basophils % 0.3, Lymphocytes # 1.3, Monocytes # 0.3, Eosinophils # 0.1, Basophils # 0.0, PUBS MCHC 33.8, MCH 31.0 01/05/17 175: Urine Color Cancelled, Urine Appearance Cancelled, Urine pH Cancelled, Ur Specific [place] Cancelled Current Medication Orders Sig/Dorcas Start time Last Medication Dose Route Stop Time Status Admin Sodium Chloride 1,000 ML .Q8H 01/05 1830 AC 01/07 IV 1216 Ampicillin/Sulbactam/ 3 GM Q6H 01/05 181 AC 01/07 Sodium Chlorid IV 1216 Sodium Chloride 100 ML Ondansetron HCl 4 MG Q6HP PRN 01/05 181 AC 01/07 IV 1216 Sodium Chloride 10 ML PRN PRN 01/05 1800 AC IV Orders Procedure Date/time Status DIET-NOTHING BY MOUTH 01/06 B Complete SURGICAL CONSULT(ADAPTED PHYSICAL EDUCATION SPECIALIST SURG) 01/06 0600 Active LIPASE 01/05 1751 Complete COMPLETE METABOLIC PANEL 01/05 175 Complete CBC WITH AUTO DIFF 01/05 175 Complete AMYLASE 01/05 175 Complete VITAL SIGNS 01/05 UNK Active POM NURSE ROBBIE FRANKLIN ORDER 01/05 UNK Active CODE STATUS 01/05 UNK Active PATIENT ACTIVITY ORDER 01/05 UNK Active 17:30-is discussed with general surgeon reclamation furnace operator, Dr Arenas, advised of the patient's presentation, physical exam, lack of improvement, inability to hold down any fluids, including pain medications, and tentatively scheduled lap grazyna for Thursday. (Joel Sepulveda MD) Departure Departure Time of Disposition 173 Disposition Still a Patient Clinical Impression Primary Impression: Cholecystitis Condition STABLE Referrals [facility] (Family) ED Critical Care Critical Care No at 1235
[2017-01-05 18:38] LABS: LYMPH # 1.3 K/mm3 (0.7-4.5); LYMPH % 17.4 % (10-50.0)
[2017-01-05 20:05] VITALS: BP 149/76
[2017-01-05 20:22] VITALS: BP 149/76
[2017-01-05 23:35] VITALS: BP 150/81
[2017-01-06 03:33] VITALS: BP 155/97
--- NOTE | 2017-01-06 04:27 | PHARMACY CLINIC NOTE ---
Patient Demographics Patient Demographics Admission date: 01/05/17 Date: 01/06/17 Time: 425 Allergies Coded Allergies: No Known Drug Intolerances (NA 01/05/17) HEIGHT- FT: 5 IN: 3.00 K.084 VTE General Information Labs: Laboratory Tests 01/05 1815 Hematology Hgb (12.2 - 16.2 g/dL) 16.0 Hct (37.0 - 47.0 %) 47.0 Plt Count (142 - 424 K/mm3) 168 Disclaimer The following section includes nursing documentation that has been pulled in for pharmacy review. Patient's VTE score: 5 Patient's VTE Risk: LOW RISK Clinical trial participant? No VTE prophylaxis [id number] VTE prophylaxis ordered? Yes Type of prophylaxis/treatment: ROBBIE at 0426
[2017-01-06 07:42] VITALS: BP 171/88
--- NOTE | 2017-01-06 08:24 | CONSULT NOTE ---
Standard Demographics Patient Demo Date of Consultation: 01/06/17 Referring Provider: Suzan Martino MD Reason for Consultation: cholecystitis PRIMARY DIAGNOSIS: CHOLECYSTITIS Allergies: Coded Allergies: No Known Drug Intolerances (NA 01/05/17) History of Present Illness Chief Complaint: Abdominal pain History of Present Illness: This is a 51-year-old female seen in consultation from Dr. Martino for evaluation regarding cholecystitis. She was discharged from [facility] 2 days ago after presenting with abdominal pain and concomitant cholecystitis diagnosis. She improved fairly quickly and the decision was made to forego cholecystectomy over the weekend. She stated that she wanted to "get a little better first". In fact, she was scheduled to see me in follow-up this morning with tentative plans for cholecystectomy later this week. Unfortunately she returned to the emergency room overnight with increasing abdominal pain. She describes the pain as "everywhere". The most significant degree of pain is in the epigastric region. No jaundice. No fevers. Past Medical History Reports: COPD. Denies: congestive heart failure. Surgical History Previous Surgery?Y Tubal Ligation UTERINE WALL REPAIR Allergies Coded Allergies: No Known Drug Intolerances (NA 01/05/17) Medications: Active Scripts Amoxicillin/Potassium Clav (Augmentin 875-125 Tablet) 1 EACH PO BID #14 TAB Prov: 01/04/17 HYDROCODONE/ACETAMINOPHEN ([place] 5-325 Tablet) 1 TAB PO Q6HP PRN pain #12 TAB Prov: 01/04/17 Reported Medications Alprazolam 0.5 MG PO QID #120 TAB Fluoxetine Hcl 40 MG PO DAILY #30 CAPSULE Omeprazole (Omeprazole 20MG) 20 MG PO DAILY Family history Postive for: HTN. Smoking Hx Tobacco: Yes Smoker: Current Every Day Smoker Type: Cigarettes Packs/day: 1 1/2 - 2 Packs Are you/the child exposed to second-hand smoke: Yes Alcohol Alcohol: No Hx of Drug Use Drug Use? No Review of Systems Constitutional Positive for: fatigue. Skin No: bruising. Immune/allergy No: anaphalaxis. Eyes No: discharge. ENT No: nose bleed. Respiratory No: pneumonia. Cardiovascular No: palpitations. GI Positive for: nausea, vomitting. No: hematemeis, hematochezia, melena. (female) No: hematuria. Musculoskeletal Positive for: myalgias. Heme No: petechia. Endocrine No: polydipsia. Neurological No: change in LOC. Psychiatric No: anxious. Physical Exam VS/I&O Vital Signs Date Time Temp Pulse Resp B/P Pulse O2 O2 Flow FiO2 Ox Delivery Rate 01/06 0742 98.5 58 20 171/88 98 ROOM AIR 01/06 0333 98.3 64 16 155/97 99 ROOM AIR 01/06 0252 18 01/05 2335 98.0 67 18 150/81 98 ROOM AIR 01/05 2027 20 01/05 2022 98.0 63 20 149/76 100 ROOM AIR 01/05 2022 98.0 63 20 149/76 100 ROOM AIR 01/05 2005 63 01/05 2005 98.0 63 20 149/76 01/05 2005 100 ROOM AIR 01/05 1822 20 01/05 1819 61 14 161/87 98 01/05 1817 85 18 179/85 98 01/05 1718 98.7 52 18 190/100 98 I&O 01/06 0700 Intake Total 1115 Output Total Balance 1115 Intake, IV 1115 Patient 55.084 kg Weight Exam General appearance alert Neck full ROM Respiratory no distress Cardiovascular regular rate and rhythm Abdomen soft (+ TTP (especially epigastric)) Plan Plan: Impression: Cholecystitis Hypokalemia Plan: 1) repeat CMP this AM 2) cholecystectomy either today or tomorrow (pending potassium replacement if necessary) at 0823
--- NOTE | 2017-01-06 08:30 | HISTORY AND PHYSICAL REPORT ---
Demographics: Admit date: 01/05/17 Chief complaint: abd pain PRIMARY DIAGNOSIS: CHOLECYSTITIS Allergies: Coded Allergies: No Known Drug Intolerances (NA 01/05/17) History of present illness: History of present illness: this wf who presented to ed with ongoing abd pain with vomiting and unable to tolerate fluids despite home meds for pain and nausea - pt had been admitted for gb disease and was d/c to be seen as op but unaable to tolerate pain or jewel fluids despite meds and returned and was admitted Past medical history: Family HX Family Hx Insignificant Yes Immunization HX Ped.Immunizations UTD Yes DT/Tetanus Unknown Pneumonia Refuses TB Test in last year Yes Result Negative General CAD? No Angina: No CA: No Hypertension? No Hyperlipidemia? No CHF? No DVT? No PE? No COPD? Yes Asthma? No Anemia? No GERD? No Gastric ulcers? No GI Bleed? No Hernia? No Thyroid Problems? No Hypothyroidism? No CVA? Yes Seizures? No Diabetes? No Renal Insuffiency? No UTI? Yes Stones? Yes GB Disease: No Nephritic Syndrome? No Asplenia? No Hepatitis? No Sickle Cell Disease? No Arthritis? Yes Migraines? Yes Cataracts? No Glaucoma? No MRSA? No HIV? No TB? No Anxiety? Yes Depression? Yes Cancer? No More? No Past Surgical HX Previous Surgery?Y Tubal Ligation UTERINE WALL REPAIR Current home meds: Active Scripts Amoxicillin/Potassium Clav (Augmentin 875-125 Tablet) 1 EACH PO BID #14 TAB Prov: 01/04/17 HYDROCODONE/ACETAMINOPHEN ([place] 5-325 Tablet) 1 TAB PO Q6HP PRN pain #12 TAB Prov: 01/04/17 Reported Medications Alprazolam 0.5 MG PO QID #120 TAB Fluoxetine Hcl 40 MG PO DAILY #30 CAPSULE Omeprazole (Omeprazole 20MG) 20 MG PO DAILY Social Hx: Smoking HX Tobacco Yes Type Cigarettes Packs/day 1 1/2 - 2 PACKS Alcohol Alcohol: No Hx of Drug Use Drug Use? No Patien't marital status is Patient's support system is good Review of systems: Constitutional No: fever. Eyes No: drainage. Ears, Nose, Mouth, Throat No ear pain, No epistaxis, No throat pain Respiratory No: cough, shortness of breath, wheezing. Cardiovascular No chest pain, No palpitations, No syncope Gastrointestinal/Abdominal abdominal pain, No diarrhea, nausea, poor appetite, poor fluid intake, vomiting Genitourinary No: dysuria, frequency, hesitancy, hematuria. Musculoskeletal No: back pain, joint pain, joint swelling, neck pain. Skin No: rash. Neurological No: headache, seizure disorder. Psychiatric No: depressed. Exam: Lab data for last 24 hours: Laboratory Tests 01/05/17 1815: Sodium 141, Potassium 2.9 *L, Chloride 104, Carbon Dioxide 28, BUN 5 L, Creatinine 0.6, Estimated Creat Clear 91, Estimated GFR (MDRD) 105, Glucose 95, Calcium 8.8, Total Bilirubin 0.9, AST 22, ALT 25, Alkaline Phosphatase 65, Total Protein 6.4, Albumin 3.3 L, Globulin 3.1, Albumin/Globulin Ratio 1.1, Amylase 29, Lipase 52 L, WBC 7.3, RBC 5.14, Hgb 16.0, Hct 47.0, MCV 91.6, RDW 12.5, Plt Count 168, MPV 7.7, Gran % 77.3, Gran # 5.6, Lymphocytes % 17.4, Monocytes % 4.1 , Eosinophils % 1.1, Basophils % 0.3, Lymphocytes # 1.3, Monocytes # 0.3, Eosinophils # 0.1, Basophils # 0.0, PUBS MCHC 33.8, MCH 31.0 Admission vital signs: 1ST Vital Signs Result Date Time Pulse Ox 98 01/05 1718 B/P 190/100 01/05 1718 Temp 98.7 01/05 1718 Pulse 52 01/05 1718 Resp 18 01/05 171 O2 Delivery ROOM AIR 01/05 2005 Exam General appearance: alert Eyes: anicteric, PERRLA ENT: dry mucous membranes Neck: no JVD Cardiovascular: regular rate & rhythm, murmur Respiratory: clear to auscultation, no respiratory distress ABD: no guarding, no organomegaly, tenderness Genitourinary: no hematuria Extremities: moves all Musculoskeletal: equal muscle strength Skin: dry Neuro: 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 Cholecystitis 2. Hypokalemia 3. Tobacco use Plan: will admit with ivf and abx with iv pain meds and antiemetics and surg consult at 0830
[2017-01-06 15:37] VITALS: BP 174/98
[2017-01-06 20:05] VITALS: BP 182/92
[2017-01-07] VITALS (16 sets, daily range): BP systolic 123–176; BP diastolic 64–92
[2017-01-07 07:05] LABS: HEMOGLOBIN 15.4 g/dL (12.2-16.2); LYMPH # 1.8 K/mm3 (0.7-4.5); LYMPH % 23.1 % (10-50.0)
--- NOTE | 2017-01-07 07:34 | ACUTE CARE PROGRESS NOTE (QUA) ---
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 Cholecystitis 2. Hypokalemia 3. Tobacco use 4. HTN (hypertension) Patient condition Stable Plan: surg planned today This inpt stay is expected to cross 2 MNs from start of care Yes Comments: surg planned today - pt noted to have elevated bp maybe partially from pain at 0758
--- NOTE | 2017-01-07 07:34 | ACUTE CARE PROGRESS NOTE (QUA) ---
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 Cholecystitis 2. Hypokalemia 3. Tobacco use 4. HTN (hypertension) Patient condition Stable Plan: surg planned today This inpt stay is expected to cross 2 MNs from start of care Yes Comments: surg planned today - pt noted to have elevated bp maybe partially from pain at 0748
--- NOTE | 2017-01-07 08:14 | SURGEON PROGRESS NOTE ---
Subjective data Subjective data: Still in pain, but "better than a few days ago". Objective data Vitals,I&O,and Labs: Vital signs, intake and output,and available lab data for the last 24 hours is as noted below. Vital Signs Date Time Temp Pulse Resp B/P Pulse O2 O2 Flow FiO2 Ox Delivery Rate 01/07 0540 18 01/07 0402 99.4 62 18 176/80 97 ROOM AIR 01/07 0135 18 01/06 2131 18 01/06 2020 97.9 56 18 182/92 98 01/06 2005 97.9 56 18 182/92 98 ROOM AIR 01/06 1720 18 01/06 1537 97.9 68 20 174/98 98 ROOM AIR 01/06 1321 20 01/06 0900 98.5 58 20 171/88 98 01/06 0856 20 01/06 1500 01/06 2300 01/07 0700 Intake Total 120 1928 1716 Output Total Balance 120 1928 1716 Intake, IV 1568 1716 Intake, Oral 120 360 Laboratory Tests Test Result Date Time Chemistry Sodium (mmoL/L) 138 01/07 0615 Potassium (mmoL/L) 4.0 01/07 0615 Chloride (mmoL/L) 105 01/07 0615 Carbon Dioxide (mmoL/L) 25 01/07 0615 BUN (mg/dL) 3 01/07 0615 Creatinine (mg/dL) 0.5 01/07 0615 Estimated Creat Clear (ML/MIN) 116 01/07 0615 Estimated GFR (MDRD) (ML/MIN) 130 01/07 0615 Glucose (mg/dL) 99 01/07 0615 Calcium (mg/dL) 8.8 01/07 0615 Magnesium (mg/dL) 1.5 01/06 0825 Total Bilirubin (mg/dL) 1.1 01/06 0820 AST (U/L) 19 01/06 0820 ALT (U/L) 24 01/06 0820 Alkaline Phosphatase (U/L) 66 01/06 0820 Total Protein (gm/dL) 6.4 01/06 0820 Albumin (gm/dL) 3.3 01/06 0820 Globulin (gm/dL) 3.1 01/06 0820 Albumin/Globulin Ratio 1.1 01/06 0820 Amylase (U/L) 29 01/05 181 Lipase (U/L) 52 01/05 1815 Hematology WBC (K/MM3) 7.9 01/07 615 RBC (M/mm3) 5.02 01/07 615 Hgb (g/dL) 15.4 01/07 615 Hct (%) 45.7 01/07 615 MCV (fl) 91.0 01/07 615 RDW (%) 12.5 01/07 615 Plt Count (K/mm3) 203 01/07 615 MPV (fl) 7.5 01/07 615 Gran % (%) 65.9 01/07 615 Gran # (K/mm3) 5.2 01/07 615 Lymphocytes % (%) 23.1 01/07 615 Monocytes % (%) 5.1 01/07 615 Eosinophils % (%) 5.7 01/07 615 Basophils % (%) 0.2 01/07 615 Lymphocytes # (K/mm3) 1.8 01/07 615 Monocytes # (K/mm3) 0.4 01/07 615 Eosinophils # (K/mm3) 0.5 01/07 615 Basophils # (K/MM3) 0.0 01/07 615 PUBS MCHC (g/dl) 33.8 01/07 615 Immunology MCH (pg) 30.7 01/07 615 Assessment findings Assessment Exam General appearance: no acute distress Cardiovascular: regular rate & rhythm Respiratory: good air movement ABD: soft (tenderness unchanged) Patient plan Diagnoses: cholecystitis hypokalemia - now replaced Plan: OR later today for yeyo geronimo at 0814
--- NOTE | 2017-01-07 15:32 | Operative Note ---
Surgeon/Diagnoses Surgeon/Resume Specialist(s) Date of procedure: 01/07/17 Surgeon: MD Lizy Guzman Diagnoses Pre-op diagnosis: Cholecystitis Post-op diagnosis Same Procedure Procedure Procedure: Laparoscopic cholecystectomy Indications: TADEO CRAVEN is a 51 year-old Female with a history of severe postprandial nausea and pain in the RIGHT upper quadrant with radiographic evidence of some gallbladder wall thickening. Findings: Mild to moderate pericholecystic fat stranding with no sign of active infection or acute inflammation. Procedure Description: After informed consent was obtained, the patient was taken to the operating room and placed in the supine position. General anesthesia was induced and the patient's abdomen was prepped and draped in a sterile fashion. After infiltration with local anesthetic an infraumbilical incision was made. A Veress needle was placed in position. The abdomen was insufflated. A 5 mm optical trocar was placed in position. Under direct visualization, 2 additional 5 mm trocars were placed in the RIGHT upper quadrant. A 12 mm trocar was placed in the subxiphoid position. The gallbladder was elevated up and over the liver margin. The tissue around the cystic duct was carefully dissected. Clips were placed proximally and the duct was transected at the infundibulum utilizing harmonic mariam. Harmonic mariam were then utilized to remove the gallbladder from the liver margin. The gallbladder was placed in a retrieval bag and removed through the subxiphoid trocar site. The RIGHT upper quadrant was thoroughly irrigated. No active bleeding or bile leak was noted. The fascia at the subxiphoid trocar site was reapproximated utilizing the marlys-close device. Pneumoperitoneum was released as the remaining trocars were removed. All wounds were irrigated and skin was closed with 4-0 Monocryl in a subcuticular fashion. Steri-Strips were applied and the patient's anesthetic agents were reversed. After extubation, the patient was transferred to recovery in stable condition. EBL (ml): 10 Anesthesia: GETA Complications: No immediate Specimens: Gallbladder and contents Disposition Disposition: Stable to recovery from where she will be transferred back to the floor at 5551
--- NOTE | 2017-01-07 15:52 | Anesthesia Record ---
Anesthesia Record Part I Total IV fluids: 800 EBL (ml): 50 Urine Output: 0 Units of blood given: 0 B/P: 160/109 % SaO2: 98 Pulse: 97 Resps: 24 Temp: 97.5 Patient is: Awake, Nasal O2, Stable (C/O PAIN) Stable to PACU at: 1538 at 1552
--- NOTE | 2017-01-07 15:54 | Anesthesia Record ---
Anesthesia Record Part II Discharge time: 1610 Destination: Second Floor PACU nurse assessment review? Yes Patient is: Awake, Stable Anesthesia complications? No at 8260
[2017-01-08 03:02] VITALS: BP 145/81
[2017-01-08 03:36] LABS: LYMPH % 11.7 % (10-50.0)
[2017-01-08 04:26] VITALS: BP 142/72
--- NOTE | 2017-01-08 04:28 | ACUTE CARE PROGRESS NOTE (QUA) ---
Progress Notes Subjective Date 01/08/17 Time 0419 Note change in vision Patient/family reports: vision loss Nursing reports: headache Objective Findings Last VS-Temp:98.9 B/P:145/81 Pulse:100 Resp:18 SaO2:98 ROOM AIR Last weight lbs:121 oz:7 K.084 Method:Bed Scales Exam General appearance: alert, awake Eyes: fundi wnl, pupils reactive to light, PERRLA, reports only seeing light/ not able to ct fingers ENT: mucous membranes moist Neck: no carotid bruit Cardiovascular: regular rate & rhythm, murmur Respiratory: no respiratory distress ABD: s/p gallbladder surg Genitourinary: no hematuria Extremities: moves all Musculoskeletal: equal muscle strength Skin: dry 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 Cholecystitis 2. Hypokalemia 3. Tobacco use 4. HTN (hypertension) 5. Vision loss, bilateral Patient condition Stable Plan: arrange facility transfer This inpt stay is expected to cross 2 MNs from start of care Yes Comments: pt with blurred vision earlier andthis progressed to loss of vision bilat about 1 hr ago with assoc global burt which did not improve with pain meds and eye sx progressed- no speech/sensory or motor def and vss and glu ok - she had ct head w/o contrast which showed bilat symmetric parieto-occipital hypoattenuation-- i discussed with [place] rito team - dr cameron and will be eval in ed by rito team at 8303
--- NOTE | 2017-01-08 04:39 | DISCHARGE SUMMARY STANDARD ---
Demographics Admit date: 01/05/17 Discharge date: 01/08/17 History of present illness History of present illness this wf who presented to ed with ongoing abd pain with vomiting and unable to tolerate fluids despite home meds for pain and nausea - pt had been admitted for gb disease and was d/c to be seen as op but unaable to tolerate pain or jewel fluids despite meds and returned and was admitted Hospital Course Hospital Course: pt had sig pain and will have gb surg after kcl replacement which was done - she had sig pain and had gb surg as per dr freire note 01/07/17 and was doing better with stable vss and about 2100 01/07/17 dev blurred vision with global burt - she has hed burt in past but no assoc vision sx- no other neuro sx and vss- she had pain meds but no relief with burt and vision sx progressed to visual loss bilat except for light- she had abn ct of head which showed symmtric hypoattenaution in parietal- occipital area and no bleed- pt was seen by me - see progress note and was discussed with rito team and will be transferred tonight for neuro eval- no sig abp pain or incisional issues Discharge diagnoses Problem List 1. Cholecystitis 2. Hypokalemia 3. Tobacco use 4. HTN (hypertension) 5. Vision loss, bilateral 6. CVA (cerebral vascular accident) Medications Medications: Discharge meds are as noted. Follow up Follow up in office in: as needed with: Mega Martino MD at [id number]
--- NOTE | 2017-01-08 08:57 | RADIOLOGY REPORT PS360 ---
CT HEAD W/O CONTRAST HISTORY: Measuring changes, visual disturbance with headache VISION CHANGES ORDERING PHYSICIAN: Mega Martino MD PATIENT AGE: 51 years COMPARISON: None TECHNIQUE: Axial images obtained without contrast. Brain and bone windows reviewed. FINDINGS: No midline shift, mass effect, intracranial hemorrhage, hydrocephalus, or extra-axial fluid collection is evident. Symmetric bilateral areas of occipital and medial parieto-occipital hypoattenuation. No hemorrhage. Sulci are somewhat attenuated in this region. The calvarium has an unremarkable appearance. No mastoid effusion. The visualized paranasal sinuses are unremarkable. IMPRESSION: 1. Symmetric and bilateral parieto-occipital hypoattenuation.. Posterior reversible encephalopathy syndrome(PRES) considered. Acute infarction would be included in the differential diagnosis. MRI recommended for further evaluation
== END 2017-01-08 05:15 | disposition short-term general hospital (02) | DRG 418 ==
LOC: ER 17:12 → 2ND 17:57
PROVIDERS: Emergency Medicine; Surgery
PROC: 0FT44ZZ Resection of Gallbladder, Percutaneous Endoscopic Approach (ICD-10-PCS; principal; 2017-01-07 14:31)
DX: K81.9 Cholecystitis, unspecified (principal); I97.821 Postprocedural cerebrovascular infarction following other surgery; I10 Essential (primary) hypertension; H54.3 Unqualified visual loss, both eyes; Z72.0 Tobacco use
CPT/HCPCS: G0378; J0131; J2405; J2543; J2710

== ENCOUNTER → 2017-07-10 | Outpatient (CLI) | payer MEDICAID ==
[~2017-07-10] MED LIST changes: +ASPIRIN ADULT L81 M2 PO; +ATORVASTATIN CA80 MG PO; +FLUOXETINE HYDR20 MG PO; +LISINOPRIL5 MG NG
[2017-07-10 18:51] LABS: AMPHETAMINES/METAMPHETAMINES NEGATIVE ng/mL (<1000)
== END ==
LOC: LAB 17:06
PROVIDERS: Emergency Medicine
DX: Z79.899 Other long term (current) drug therapy (principal)